=== PATIENT | female | born 1945 | race Caucasian/White ===

== ENCOUNTER 2018-01-20 10:41 | Outpatient (CLI) | payer MEDICARE, OTHER, SELFPAY ==
[2018-01-20 13:10] LABS: ALT 31 U/L (12-78); AST 23 U/L (15-37); Albumin 4.1 g/dL (3.4-5.0); Alkaline Phosphatase 104 U/L (46-116); Anion Gap 9.2 mmol/L (3-11); BUN 18 mg/dL (7-18); Bilirubin, Total 0.6 mg/dL (0.2-1.0); CO2 27.8 mmol/L (21.0-32.0); CREATININE 0.89 mg/dL (0.55-1.02); Calcium 9.3 mg/dL (8.5-10.1); Chloride 106 mmol/L (98-107); Glucose 92 mg/dL (70-100); Potassium 4.4 mmol/L (3.5-5.1); Sodium 143 mmol/L (136-145); Total Protein 7.1 g/dL (6.4-8.2)
== END 2018-01-20 11:01 ==
PROVIDERS: PCP Family Medicine; Visit Provider Family Medicine
DX: G47.00 Insomnia, unspecified (principal); K76.0 Fatty (change of) liver, not elsewhere classified
CPT/HCPCS: 36415; 80053

== ENCOUNTER 2018-02-07 01:15 | Outpatient (CLI) | payer MEDICARE, OTHER, SELFPAY ==
--- NOTE | 2018-02-07 11:30 | DI.MAMMO_ITS ---
SYMPTOMS/DIAGNOSIS: SCREENING, Z12.31 MAMMOGRAM: Mammograms were interpreted according to the usual protocol including computer analysis with CAD system, tomosynthesis and C view imaging. The breasts are of moderate density with fairly symmetrical distribution of fibroglandular tissue. No dominant mass or clumped microcalcification is identified in either breast. The current examination is compared with previous examinations including February 2016 and there has been no gross interval change in appearance in comparison with the previous studies. CONCLUSION: No specific evidence of malignancy at this time. Routine screening examinations are suggested at yearly intervals in this age group according to the ACS/ACR guidelines. Category I. Breast density Category B. MQSA ASSESSMENT OF FINDINGS: Negative. Category 1. Patient will receive a letter notifying them of these results. BI-RADS category B. There are scattered areas of fibroglandular density.
== END 2018-02-07 01:35 ==
PROVIDERS: PCP Family Medicine; Visit Provider Family Medicine
DX: Z12.31 Encounter for screening mammogram for malignant neoplasm of breast (principal)
CPT/HCPCS: 77063; 77067

== ENCOUNTER 2019-01-23 11:33 | Outpatient (CLI) | payer MEDICARE, OTHER, SELFPAY ==
--- NOTE | 2019-01-23 11:30 | DI.RAD_ITS ---
EXAM: XR FOREARM LT INDICATION: left arma nd elbow pain, M79.603. COMPARISON: XR ELBOW LT COMPLETE from 01/23/2019 TECHNIQUE: 2D digital imaging of the left forearm and left elbow was performed. FINDINGS: There is a nondisplaced fracture through the radial neck. No other fracture or dislocation is identi fied. There is a joint effusion present. The soft tissues are unremarkable. IMPRESSION: Nondisplaced left radial neck fracture. CT scan of the elbow may be obtained for further evaluation.
[2019-01-23 12:38] LABS: HCT 38.4 % (36.0-46.0); HGB 13.2 g/dL (12.0-15.5); Mean Corp. HGB Concentration 34.4 g/dL (32.0-36.0); Mean Corpuscular Hemoglobin 32.2 pg (27.0-33.0); Mean Corpuscular Volume 93.7 fL (80-95); Mean Platelet Volume 9.8 fL (8.0-11.0); Platelet Count 211 x1000/uL (130-400); RBC Distribution Width 12.1 % (11.7-14.6); White Blood Cell Count 4.42 k/cumm (4.4-10.8)
[2019-01-23 14:15] LABS: ALT 28 U/L (14-59); AST 20 U/L (15-37); Alkaline Phosphatase 111 U/L (46-116); Anion Gap 12.5 mmol/L (3-11); BUN 16 mg/dL (7-18); Bilirubin, Total 0.5 mg/dL (0.2-1.0); CO2 26.5 mmol/L (21.0-32.0); CREATININE 0.96 mg/dL (0.55-1.02); Chloride 105 mmol/L (98-107); Estimated GFR 56.97 (mL/min/1.73m2); Glucose 89 mg/dL (70-100); Sodium 144 mmol/L (136-145); Total Protein 7.3 g/dL (6.4-8.2)
== END 2019-01-23 11:53 ==
PROVIDERS: PCP Family Medicine; Visit Provider Family Medicine
DX: M79.602 Pain in left arm (principal); M25.522 Pain in left elbow; M25.422 Effusion, left elbow; S52.134A Nondisplaced fracture of neck of right radius, initial encounter for closed fracture; I10 Essential (primary) hypertension; K76.0 Fatty (change of) liver, not elsewhere classified
CPT/HCPCS: 36415; 80053; 85027; 73080; 73090

== ENCOUNTER → 2019-01-24 10:18 | Outpatient (BNVA) | payer MEDICARE, OTHER, SELFPAY | PROVIDERS: PCP Family Medicine; Referring Provider Family Medicine; Visit Provider Orthopaedic Surgery | DX: S52.132A Displaced fracture of neck of left radius, initial encounter for closed fracture (principal); W54.1XXA Struck by dog, initial encounter; W19.XXXA Unspecified fall, initial encounter | CPT/HCPCS: 99201; 99202 ==

== ENCOUNTER 2019-02-21 01:47 | Outpatient (CLI) | payer MEDICARE, OTHER, SELFPAY ==
--- NOTE | 2019-02-21 10:59 | DI.MAMMO_ITS ---
EXAM: MG MAMMO SCREENING CLINICAL HISTORY: screening Z12.39 TECHNIQUE: Bilateral full field digital CC and MLO mammographic images were obtained with 3D tomosyn thesis and utilizing computer aided detection (CAD). COMPARISON: Available for comparison. FINDINGS: Masses/Architectural Distortion: None seen. Microcalcifications: No suspicious pleomorphic-type are seen. Skin Thickening/Nipple Retraction: None. IMPRESSION: 1. No significant interval change with no specific features of malignancy noted. 2. Unless there is more urgent need, screening mammography is recommended, as per [employer] guidelines. ACR BI-RAD Category- 1 Negative Breast Density - Category B - Scattered areas of fibroglandular density A negative radiographic report should not delay biopsy if a dominant or clinically suspicious mass is present. Up to ten percent of cancers are not identified on mammography. A negative report may reinforce clinical impression. Adenosis and dense breasts may obscure an underlying neoplasm. False positive reports average 6 to 10%.
== END 2019-02-21 02:07 ==
PROVIDERS: PCP Family Medicine; Visit Provider Family Medicine
DX: Z12.31 Encounter for screening mammogram for malignant neoplasm of breast (principal)
CPT/HCPCS: 77063; 77067

== ENCOUNTER 2020-02-26 02:18 | Outpatient (CLI) | payer MEDICARE, OTHER, SELFPAY ==
--- NOTE | 2020-02-26 06:45 | DI.MAMMO_ITS ---
EXAM: MG MAMMO SCREENING CLINICAL HISTORY: screening,z12.39 TECHNIQUE: Bilateral full field digital CC and MLO mammographic images were obtained with 3D tomosyn thesis and utilizing computer aided detection (CAD). COMPARISON: Available for comparison. FINDINGS: Masses/Architectural Distortion: None seen. Microcalcifications: No suspicious pleomorphic-type are seen. Skin Thickening/Nipple Retraction: None. IMPRESSION: 1. No significant interval change with no specific features of malignancy noted. 2. Unless there is more urgent need, screening mammography is recommended, as per [employer] guidelines. BI-RADS Category 1 - Negative Breast Density - Category B - Scattered areas of fibroglandular density A negative radiographic report should not delay biopsy if a dominant or clinically suspicious mass is present. Up to ten percent of cancers are not identified on mammography. A negative report may reinforce clinical impression. Adenosis and dense breasts may obscure an underlying neoplasm. False positive reports average 6 to 10%. Patient will receive a letter notifying them of these results.
== END 2020-02-26 02:38 ==
PROVIDERS: PCP Family Medicine; Visit Provider Family Medicine
DX: Z12.31 Encounter for screening mammogram for malignant neoplasm of breast (principal)
CPT/HCPCS: 77063; 77067

== ENCOUNTER 2020-07-23 03:07 | Outpatient (CLI) | payer MEDICARE, OTHER, SELFPAY ==
[2020-07-24 15:52] LABS: COVID-19 RT-PCR UVMMC Result Negative (Negative)
== END 2020-07-23 03:08 | disposition home or self-care (01) ==
LOC: LBO 03:07
PROVIDERS: PCP Family Medicine; Visit Provider Family Medicine
DX: Z20.822 Contact with and (suspected) exposure to COVID-19 (principal)
CPT/HCPCS: U0003; U0005

== ENCOUNTER 2020-09-27 01:08 | Outpatient (CLI) | payer MEDICARE, OTHER, SELFPAY ==
[2020-09-27 09:18] LABS: ALT 37 U/L (14-59); AST 23 U/L (15-37); Albumin 4.1 g/dL (3.4-5.0); Alkaline Phosphatase 103 U/L (46-116); Anion Gap 9.7 mmol/L (3-11); BUN 20 mg/dL (7-18); Bilirubin, Total 0.6 mg/dL (0.2-1.0); CO2 27.3 mmol/L (21.0-32.0); Calculated LDL 158 mg/dL (<100); Chloride 104 mmol/L (98-107); Cholesterol 249 mg/dL (<200); Estimated GFR 54.05 (mL/min/1.73m2); Glucose 96 mg/dL (74-106); HDL Cholesterol 71 mg/dL (40-60); Potassium 4.2 mmol/L (3.5-5.1); Sodium 141 mmol/L (136-145); Total Protein 7.2 g/dL (6.4-8.2); Triglyceride 103 mg/dL (<150)
== END 2020-09-27 01:09 | disposition home or self-care (01) ==
LOC: LBO 01:08
PROVIDERS: PCP Family Medicine; Visit Provider Family Medicine
DX: I10 Essential (primary) hypertension (principal); E78.5 Hyperlipidemia, unspecified; K76.0 Fatty (change of) liver, not elsewhere classified
CPT/HCPCS: 36415; 80053; 80061

== ENCOUNTER 2021-07-28 01:16 | Outpatient (CLI) | payer MEDICARE, SELFPAY ==
--- NOTE | 2021-07-28 08:15 | DI.MAMMO_ITS ---
Exam(s) MAMMO SCREENING EXAM: MAMMO SCREENING CLINICAL HISTORY: screening,Z12.39. TECHNIQUE: Bilateral full field digital CC and MLO mammographic images were obtained with 3D tomosyn thesis and utilizing computer aided detection (CAD). COMPARISON: Prior mammograms were reviewed, the most recent being February 2020. FINDINGS: There has been no significant change in appearance and distribution of the fibroglandular tissue. There are no CAD designations. There are no new spiculated masses nor malignant appearing microcalcification groups. Right breast benign unchanged nodule is again noted, unchanged and probably benign lymph node. There is no significant architectural distortion nor skin thickening-retraction. IMPRESSION: No radiographic evidence of malignancy. BI-RADS Category 1 - Negative Breast Density - Category B - Scattered areas of fibroglandular density Breast density Category C or D implies that the patient has dense breast tissue. Dense breast tissue can make it harder to find cancer on a mammogram. Dense breast tissue is also associated with an incr eased risk of breast cancer. This information about the result of the mammogram report was provided to the patient to raise their awareness. Use this report when you speak with the patient about their risks for breast cancer, which includes their family history. At that time, you may recommend additional screening tests (Ultrasoun d or MRI) as these tests may add significant information. A negative radiographic report should not delay biopsy if a dominant or clinically suspicious mass is present. Up to ten percent of cancers are not identified on mammography. A negative report may reinforce clinical impression. Adenosis and dense breasts may obscure an underlying neoplasm. False positive reports average 6 to 10%. Patient will receive a letter notifying them of these results.
== END 2021-07-28 01:36 ==
PROVIDERS: PCP Family Medicine; Visit Provider Family Medicine
DX: Z12.31 Encounter for screening mammogram for malignant neoplasm of breast (principal)
CPT/HCPCS: 77063; 77067

== ENCOUNTER 2022-03-11 03:22 | Outpatient (CLI) | payer MEDICARE, SELFPAY ==
[2022-03-11 12:26] LABS: HCT 36.2 % (36.0-46.0); HGB 12.5 g/dL (11.2-15.7); MCHC 34.5 % (32.0-36.0); MCV 93 fL (80-95); MPV 10.4 fL (8.0-11.0); Platelet Count 185 10^3/uL (130-400); RBC 3.91 10^6/uL (3.93-5.22); RDW 10.7 % (11.7-14.6); RDW-SD 36.5 fL; WBC 5.02 10^3/uL (4.4-10.8)
[2022-03-11 12:49] LABS: ALT 33 U/L (14-59); AST 23 U/L (15-37); Albumin 3.8 g/dL (3.4-5.0); Alkaline Phosphatase 92 U/L (46-116); Anion Gap 7.5 mmol/L (3-11); BUN 22 mg/dL (7-18); Bilirubin, Total 0.6 mg/dL (0.2-1.0); CO2 30.5 mmol/L (21.0-32.0); CREATININE 1.3 mg/dL (0.55-1.02); Calcium 9.3 mg/dL (8.5-10.1); Chloride 104 mmol/L (98-107); Estimated GFR 42.62 (mL/min/1.73m2); Glucose 131 mg/dL (74-106); Potassium 3.2 mmol/L (3.5-5.1); Sodium 142 mmol/L (136-145); Total Protein 7.4 g/dL (6.4-8.2)
== END 2022-03-11 03:23 | disposition home or self-care (01) ==
LOC: LOS 03:22
PROVIDERS: PCP Family Medicine; Visit Provider Family Medicine
DX: R63.4 Abnormal weight loss (principal); E78.5 Hyperlipidemia, unspecified; K76.0 Fatty (change of) liver, not elsewhere classified
CPT/HCPCS: 36415; 80053; 85027; 84443

== ENCOUNTER → 2022-07-30 08:51 | Outpatient (BNVA) | payer MEDICARE, SELFPAY | PROVIDERS: PCP Family Medicine; Referring Provider Family Medicine; Visit Provider Physical Therapy Assistant | DX: Z12.11 Encounter for screening for malignant neoplasm of colon (principal) ==

== ENCOUNTER 2022-08-10 07:35 | Day surgery (SDC) | payer MEDICARE, SELFPAY ==
--- NOTE | 2022-08-09 20:42 | W.PM.DSUDISC ---
Date of service: 08/10/22 Time of Service: 09:39 Discharge Plan Disposition Patient Disposition: Home Condition: Good Discharge Details Reason For Visit: Screening colonoscopy Attending Provider: Akira Dooley Primary Care Provider: Sonia Bolivar Home Meds and New Rx's Prescriptions: Continued ICaps AREDS [id number] fmze-up-iptl capsule 1 cap PO BID losartan-hydrochlorothiazide 50-12.5 mg tablet 1 tab PO DAILY Qty: 90 4RF multivitamin 1 EACH tablet 1 ea PO DAILY omega-3 fatty acids-fish oil 1 EACH capsule 1 ea PO DAILY naproxen sodium 220 MG capsule 220 mg PO DAILY PRN melatonin 5 MG tablet 5 mg PO HS estradiol [Vagifem] 10 mcg tablet 10 mcg VG 2X Week Qty: 25 4RF nortriptyline 25 mg capsule 25 mg PO HS Qty: 90 4RF Discontinued bisacodyl [Dulcolax (bisacodyl)] 5 mg tablet,delayed release (DR/EC) 5 mg PO ONCE Qty: 4 0RF Rx Instructions: Colonoscopy Bowel Prep- Per Instructions polyethylene glycol 3350 17 gram/dose powder 238 g PO ONCE Qty: 238 0RF Rx Instructions: Colonoscopy Bowel Prep- Per Instructions Discharge Instructions Additional Instructions: Terri, we were able to complete your colonoscopy without any difficulty today. I did not see any signs of polyps or tumors. In that regards, the colonoscopy is negative. Typical recommendation is for a follow-up colonoscopy in 10 years. However, there is some debate about the appropriate age to stop with screening colonoscopies. I will leave that up to you and your primary care physician. Certainly, if you feel up to another colonoscopy when you are 86, I be more than happy to provide that for you. If you have any questions, please feel free to contact us at any time. 1. If tolerated, consume a soft, low fiber diet for 1-2 days. 2[address] Do not drive, drink alcohol, operate machinery, make critical decisions, or do activities that require coordination or balance for 24 hours. 3. Because air was put into your colon during the procedure, expelling air from your rectum (passing gas or farting) is normal. 4. You may not have a bowel movement for 1-3 days because of the colonoscopy prep. This is normal. 5. Go directly to the emergency room if you notice any of the following: Develop chills (warm to touch), or if you have a thermometer and your temperature is above 101 Difficulty breathing or difficultly swallowing Persistent vomiting Severe abdominal pain, other than gas cramps Severe chest pain Black, tarry stools Any bleeding ? exceeding one tablespoon 6. Call your physician if the site where your intravenous was started becomes red, swollen, painful, and warm to touch. 7. Your physician has reviewed your pre-procedure medications. Please continue to take those medications as previously ordered. You will be given specific information/education regarding any changes to your medications before leaving. Activity:: Activity as Tolerated Diet:: As Tolerated Discharge Orders Discharge Orders: Discharge Order (Routine); Ordered 08/09/22 Ordered By: Akira Dooley DS: Diagnosis Discharge Diagnosis (1) Screening for colon cancer: Status: Acute Asessment and Plan: Negative screening colonoscopy.
--- NOTE | 2022-08-09 20:44 | W.COLOREPORT ---
Date of service: 08/10/22 Time of Service: 09:40 Colonoscopy Report Date of procedure: 08/10/22 Pre-op diagnosis general: screening colonoscopy Post-op diagnosis procedure note: same Procedure: colonoscopy Surgeon: Akira Dooley Anesthesia Type: General:No Airway Estimated blood loss (mL): 0 Pathology: none sent Complications: None Disposition: same day Indications: Terri is a 76-year-old woman following up for her next screening colonoscopy Prep: Miralax/Dulcolax Procedure Start Time: 09:18 Procedure End Time: :29 Retraction Time: 7 Findings: Vaginal prolapse, rectocele Procedure Description: After the induction of monitored anesthetic care, and with the patient in left lateral decubitus position, I began by performing an external anorectal exam.? There is vaginal prolapse perineum and skin were normal, as was the anal verge.? There was no evidence of external hemorrhoids.? Next, I performed a digital rectal exam.? There is a rectocele.? Next, I advanced a colonoscope into the rectal vault.? I performed retroflexion.? I did not see signs of pathologic internal hemorrhoids.? Using insufflation, I then advanced the colonoscope beyond the rectal folds and into the sigmoid colon before advancing towards the cecum.? The quality of the prep was excellent.? The scope was noted to be in the cecum by identification of the ileocecal valve and appendiceal orifice.? I then began withdrawing the colonoscope using repeated irrigation as necessary for full evaluation of the colonic mucosa. ?Once the scope was withdrawn to the level of the rectum, great care was taken to examine portions of the rectal folds.? I did not see any signs of tumors or polyps. Finally, the scope was withdrawn and the patient was brought to the same-day surgery recovery unit as the anesthetic wore off. ?The findings and instructions were shared with the patient prior to discharge.
[2022-08-10 07:45] VITALS: BP 124/77; PULSE 80; RESP 16; TEMP 36.6; O2SAT 96
[2022-08-10] MEDS: Lactated Ringers 1,000 ML 80 ML IV (08:06)
--- NOTE | 2022-08-10 08:42 | W.ANESPRE ---
General Info Date of Service Date Performed: 08/10/22 Height: 5 ft 5 in Weight: 58 kg Body Mass Index (BMI): 21.2 Surgical Procedure: Operation Date: 08/10/22 09:20 Proposed Procedure Side Surgeon lainey Dooley MD Meds Allergies and Home Medications Allergies Allergy/AdvReac Type Severity Reaction Status Date / Time lisinopril AdvReac Intermediate cough Verified 08/10/22 07:57 Home Medication Medication Instructions Recorded multivitamin 1 ea PO DAILY 11/06/13 naproxen sodium 220 mg capsule 220 mg PO DAILY PRN 11/06/13 omega-3 fatty acids-fish oil 300 1 ea PO DAILY 11/06/13 mg-1,000 mg capsule melatonin 5 mg tablet 5 mg PO HS 11/07/13 vitamins A,C,Y-yfrg-rltqlx 4,296 1 cap PO BID 08/23/18 mcg-226 mg-90 mg capsule (ICaps AREDS) estradiol 10 mcg vaginal tablet 10 mcg vaginal 2X Week #25 tab-caps 02/18/22 (Vagifem) nortriptyline 25 mg capsule 25 mg PO HS #90 tabs 02/20/22 losartan 50 mg-hydrochlorothiazide 1 tab PO DAILY #90 tabs 03/10/22 12.5 mg tablet Current Visit Medications: Current Medications Generic Name Dose Route Start Last Admin Trade Name Freq PRN Reason Stop Dose Admin Hyoscyamine Sulfate 0.125 mg 08/09/22 20:44 Hyoscyamine 0.125 Mg Sl/Oral/Chew SL DIRECTED PRN Ringer's Solution 1,000 mls @ 80 mls/hr 08/10/22 06:00 08/10/22 08:06 IV 09/06/22 23:59 80 mls/hr INFUSION KAMRON Administration IV Miscellaneous Supplies 1 each 08/10/22 06:00 Iv Access IV 09/06/22 23:59 DIRECTED KAMRON Ondansetron HCl 4 mg 08/09/22 20:44 Ondansetron 4 Mg/2 Ml Vial IVP Q4H PRN PRN Nausea / Vomiting Sodium Chloride 0 ml 08/10/22 06:00 Normal Saline Flush 10 Ml Syr IV 09/06/22 23:59 PRN PRN Sodium Chloride 0 ml 08/10/22 06:00 Normal Saline 10 Ml Vial IJ 09/06/22 23:59 DIRECTED PRN Sterile Water 0 ml 08/10/22 06:00 Water,Injection,Sterile 10 Ml Vial IJ 09/06/22 23:59 DIRECTED PRN PFSH Active Problems Active Problems: Problem Status Onset Code Screening for colon cancer Z12.11 Actinic keratosis due to exposure to sunlight 01/04/17 L57.0, X32.XXXA Basal cell carcinoma of skin of other parts of face C44.319 Bruit of left carotid artery R09.89 Generalized osteoarthrosis M15.9 Insomnia G47.00 Midline cystocele 12/10/15 N81.11 Non-alcoholic fatty liver disease K76.0 Vaginal atrophy 12/10/15 N95.2 Aneurysm Polyp of colon K63.5 Papilloma of skin D23.9 Hyperlipidemia E78.5 Fracture of radial neck Hypertension I10 Encounter for annual physical exam Z00.00 Stress at home F43.9 H/O colonoscopy Z98.890 Weight loss R63.4 Medical History Medical History Abnormal mammogram (03/25/04) Abnormal mammogram, unspecified 03/25/04 repeat mammo was normal Anemia with normal values on F/U Anemia Arm pain Cerumen impaction Depressive disorder Depressive disorder Elevated blood pressure reading Headache negative MRI Headache Hyperlipidemia now normal 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 Iatrogenic pulmonary embolism and infarction Pt. unsure of this Old anterior cruciate ligament disruption Paresthesia with an as yet undefined neuropathy; has seen a neurologist Paresthesia Pneumonia 04/26/89 organism unspecified Pneumonia due to organism Polyp of colon 04/26/00 hyperplastic polyp Post-menopausal bleeding 04/26/95 neg. endometrial Bx Postmenopausal bleeding Rupture of appendix ruptured appendix w/secondary PE Rupture of appendix Smoker quit 1996 Smoker Surgical History Surgical History Status post surgical removal of malignant neoplasm of skin 05/06/17 ([facility]) DR. BOO Tobacco Smoking/Tobacco Use Status: Former Tobacco Use Passive smoking exposure: No Second hand exposure: No Alcohol Alcohol Intake: current Alcohol intake frequency: a few times a month Alcohol type: wine Substance Use Substance use: Never Substance use type: does not use Vital Signs and Lab Results Vital Signs Most Recent Vital Signs in EMR: Most Recent Vital Signs Temp Pulse Resp BP Pulse Ox 36.6 C 80 16 124/77 96 08/10/22 07:45 08/10/22 07:45 08/10/22 07:45 08/10/22 07:45 08/10/22 07:45 Lab Results Blood Type / Crossmatch: No Data to Display Complete Blood Count: No Data to Display Complete Metabolic Panel: No Data to Display Liver Function Panel: No Data to Display Coagulation Panel: No Data to Display Cardiac Panel: No Data to Display Arterial Blood Gas: No Data to Display Venous Blood Gas: No Data to Display Pancreas Panel: No Data to Display Thyroid Panel: No Data to Display Infectious Disease: No Data to Display Blood Cultures: No Data to Display Toxicology Panel: No Data to Display Anesthesia Assessment and Plan Anesthesia History Personal History: No History of Anesthesia Complications Family History: No Family History of Anesthesia Complications Exercise Tolerance Exercise Tolerance: Metabolic Equivalents>4 Pertinent Negatives Pertinent Negatives: No Symptoms of GERD Cardiac & Pulmonary Exam Cardiac Exam: Normal S1/S2 Heart Sounds Pulmonary Exam: Clear Bilateral Breath Sounds Implantable Cardiac Device Does patient have a Pacemaker or an ICD?: No Airway Exam Known Difficult Airway: No Mallampati Class: 3 Mouth Opening: Narrow (< 3cm) Thyromental Distance: Greater than 3 cm Neck Range of Motion: Full ROM Neck Circumference: Normal Teeth Condition: Normal Dentition ASA Classification ASA Score: ASA 2 Emergency Case?: No NPO Status NPO Status: NPO Clears >2 hours, Solids >8 hours Anesthesia Plan Resuscitation Status: Full Code Anesthesia Technique: General Anesthesia Airway Planned: Natural Airway Monitors Used: Standard Monitors
[2022-08-10 09:05] VITALS: BMI 21.2
[2022-08-10 09:37] VITALS: BP 109/70; PULSE 78; RESP 16; TEMP 36.5; O2SAT 100
[2022-08-10 10:02] VITALS: BP 119/71; PULSE 75; RESP 16; TEMP 37.1; O2SAT 100
--- NOTE | 2022-08-10 10:08 | W.ANESPOSTOP ---
Postoperative Evaluation Date, Time and Location Date Performed: 08/10/22 Time Performed: 09:50 Patient Location: Day Surgery Unit Vital Signs Most Recent Imported Vital Signs: Most Recent Vital Signs Temp Pulse Resp BP Pulse Ox 37.1 C 75 16 119/71 100 08/10/22 10:02 08/10/22 10:02 08/10/22 10:02 08/10/22 10:02 08/10/22 10:02 Pain Score Most Recent Pain Score: Most Recent Pain Score Pain Level 0 08/10/22 10:02 Assessment Mental Status: Awake (Alert & Oriented to Patient Baseline) Airway and Respiratory Function: Patent airway with normal (patient baseline) respiratory exam Cardiovascular Function: Hemodynamically Stable Hydration Status: Adequately Hydrated Nausea & Vomiting: No Nausea or Vomiting Pain: Pt. Denies Any Pain Peripheral Nerve Block: Patient did not receive a nerve block
== END 2022-08-10 10:20 | disposition home or self-care (01) ==
PROVIDERS: PCP Family Medicine; Visit Provider Surgery
PROC: 0DJD8ZZ Inspection of Lower Intestinal Tract, Via Natural or Artificial Opening Endoscopic (ICD-10-PCS; CPT 45378; principal; 2022-08-10 09:15)
DX: Z12.11 Encounter for screening for malignant neoplasm of colon (principal)
CPT/HCPCS: G0121

== ENCOUNTER 2023-04-01 09:54 | Outpatient (CLI) | payer MEDICARE, SELFPAY ==
[2023-04-01 12:41] LABS: ALT 27 U/L (14-59); AST 22 U/L (15-37); Alkaline Phosphatase 98 U/L (46-116); Anion Gap 11.2 mmol/L (3-11); BUN 19 mg/dL (7-18); Bilirubin, Total 0.7 mg/dL (0.2-1.0); CO2 28.8 mmol/L (21.0-32.0); CREATININE 1.1 mg/dL (0.55-1.02); Calcium 9.6 mg/dL (8.5-10.1); Chloride 102 mmol/L (98-107); Estimated GFR 51.75 (mL/min/1.73m2); Glucose 94 mg/dL (74-106); Potassium 3.7 mmol/L (3.5-5.1); Sodium 142 mmol/L (136-145); TSH (W/Ref FT4) 1.65 uIU/mL (0.36-3.74); Total Protein 7.4 g/dL (6.4-8.2)
== END 2023-04-01 09:55 | disposition home or self-care (01) ==
LOC: LOS 09:54
PROVIDERS: PCP Family Medicine; Visit Provider Family Medicine
DX: I10 Essential (primary) hypertension (principal); G47.00 Insomnia, unspecified
CPT/HCPCS: 36415; 80053; 84443

== ENCOUNTER → 2023-08-18 02:16 | Outpatient (CLI) | payer MEDICARE, SELFPAY ==
--- NOTE | 2023-08-18 06:45 | DI.RAD_ITS ---
Exam(s) XR KNEE LT 3V AP,LAT,KVNG EXAM: XR KNEE LT 3V AP,LAT,KVNG CLINICAL HISTORY: l knee pain,m25.562. TECHNIQUE: 2D digital imaging was performed of the left knee. Three images were obtained. AP, late ral and PA tunnel views were obtained. COMPARISON: No priors for comparison. FINDINGS: BONES: No acute fracture is present. No bony destructive lesion is seen. JOINTS: The knee is normally aligned. There is a small joint effusion. No loose body. SOFT TISSUE: Tiny old calcifications are seen lateral to the lateral femoral condyle. Vascular calci fications are present. IMPRESSION: Small joint effusion. DATA REPOSITORY: RADIATION DOSE DELIVERED:
== END ==
PROVIDERS: PCP Family Medicine; Visit Provider Family Medicine
DX: M25.562 Pain in left knee (principal); M25.442 Effusion, left hand
CPT/HCPCS: 73562

== ENCOUNTER 2024-02-23 01:33 | Outpatient (CLI) | payer MEDICARE, SELFPAY ==
[2024-02-23 10:35] LABS: HCT 39.5 % (36.0-46.0); HGB 13.6 g/dL (11.2-15.7); MCH 32.8 pg (27.0-33.0); MCHC 34.4 % (32.0-36.0); MCV 95 fL (80-95); MPV 9.2 fL (8.0-11.0); Platelet Count 168 10^3/uL (130-400); RBC 4.15 10^6/uL (3.93-5.22); RDW 11.3 % (11.7-14.6); RDW-SD 39.2 fL; WBC 4.33 10^3/uL (4.4-10.8)
[2024-02-23 11:15] LABS: ALT 26 U/L (14-59); AST 22 U/L (15-37); Alkaline Phosphatase 105 U/L (46-116); Anion Gap 10.5 mmol/L (3-11); BUN 16 mg/dL (7-18); Bilirubin, Total 0.66 mg/dL (0.2-1.0); CO2 28.5 mmol/L (21.0-32.0); CREATININE 1.2 mg/dL (0.55-1.02); Calcium 9.5 mg/dL (8.5-10.1); Chloride 104 mmol/L (98-107); Estimated GFR 46.33 (mL/min/1.73m2); Glucose 105 mg/dL (74-106); Sodium 143 mmol/L (136-145); TSH (W/Ref FT4) 2.24 uIU/mL (0.36-3.74); Total Protein 7.8 g/dL (6.4-8.2); Vitamin B12 1033 pg/mL (193-986)
== END 2024-02-23 01:34 | disposition home or self-care (01) ==
LOC: LBO 01:33
PROVIDERS: PCP Family Medicine; Visit Provider Family Medicine
DX: R41.3 Other amnesia (principal); E03.9 Hypothyroidism, unspecified; D64.9 Anemia, unspecified; I10 Essential (primary) hypertension; E11.9 Type 2 diabetes mellitus without complications
CPT/HCPCS: 36415; 80053; 85027; 82607; 83036; 84443

== ENCOUNTER 2024-09-14 02:26 | Outpatient (CLI) | payer MEDICARE, SELFPAY ==
--- NOTE | 2024-09-14 07:00 | DI.MRI_ITS ---
Exam(s) MR BRAIN WO EXAM: MR BRAIN WO CLINICAL HISTORY: memory changes,R41.3 TECHNIQUE: Multiplanar multisequence MRI of the brain was performed. COMPARISON: CT HEAD WITHOUT CONTRAST from 03/15/2008 FINDINGS: VENTRICLES AND EXTRA AXIAL SPACES: Normal in size and morphology for the patient's age. MIDLINE SHIFT: None. CEREBRAL PARENCHYMA: No focus of restricted diffusion to suggest acute infarct. No space-occupying le craig identified. Mild atrophy consistent with the patient's age. Mild scattered foci of high signal in the white matter consistent with sequela of chronic microvascular disease. BRAINSTEM/CEREBELLUM: Normal. VISUALIZED PARANASAL SINUSES: Clear. MASTOIDS:Clear. Vasculature: Normal flow void. PITUITARY GLAND: Unremarkable. ORBITS: Unremarkable. IMPRESSION: Mild atrophy. Mild white matter changes of small vessel disease. No acute abnormality. DATA REPOSITORY:
== END 2024-09-14 02:46 ==
LOC: DI 02:26
PROVIDERS: PCP Family Medicine; Visit Provider Family Medicine
DX: R41.3 Other amnesia (principal); I67.89 Other cerebrovascular disease
CPT/HCPCS: 70551